=== PATIENT | female | born 1965 | race African-American/Black ===

== ENCOUNTER 2021-10-20 14:28 | Outpatient (CLI) | payer MEDICARE, MEDICAID | END 2021-10-20 14:29 | disposition home or self-care (01) | LOC: CSHMRI 14:28 | PROVIDERS: ATTEND Surgery | DX: M54.12 Radiculopathy, cervical region (principal); M54.16 Radiculopathy, lumbar region; Z98.890 Other specified postprocedural states; M47.812 Spondylosis without myelopathy or radiculopathy, cervical region; E07.9 Disorder of thyroid, unspecified; M48.02 Spinal stenosis, cervical region; M47.816 Spondylosis without myelopathy or radiculopathy, lumbar region; M51.26 Other intervertebral disc displacement, lumbar region | CPT/HCPCS: 72050; 72125; 72141; 72148 ==